=== PATIENT | female | born 2000 | race American Indian/Alaskan Native ===

== ENCOUNTER 2021-01-28 18:38 | Outpatient (CLI) | payer MEDICAID ==
[2021-01-28 19:35] VITALS: BP 130/79
== END 2021-01-28 20:35 | disposition home or self-care (01) ==
LOC: TRG 18:38 → APU 18:41 → TRG 20:35
PROVIDERS: ATTEND Obstetrics & Gynecology
DX: Z34.93 Encounter for supervision of normal pregnancy, unspecified, third trimester (principal); Z3A.39 39 weeks gestation of pregnancy
CPT/HCPCS: 59025; Q0177

== ENCOUNTER 2021-01-29 15:37 | Inpatient (IN) | payer MEDICAID, OTHER ==
[2021-01-29] MEDS ORDERED: ACETAMINOPHEN 325 MG TAB PO PRN (16:36)
[2021-01-29] MEDS ORDERED: ONDANSETRON 4 MG/2 ML INJ IV PRN (16:36)
--- NOTE | 2021-01-29 16:52 | History and Physical Report ---
History of Present Illness Date of examination: 01/29/21 Date of admission: 01/29/2021 Chief complaint: contractions and back pain for the last 3 days History of present illness: EDC Confirmation: 02/07/2021 Past History : 2 Term Births: 1 Premature Births: 0 Living Children: 1 Para: 1 Mult. Births: 0 Prev : 1 Prev. attempt? 0 Aborta: 0 Elect. Ab: 0 Spont. Ab: 0 Ectopics: 0 # 1 Delivery date: 05/03/2019 Weeks Gestation: 37 labor: no Delivery type: Delivery location: [facility] Infant Sex: Female weight: 6-7lbs Comments: failed IOL for pre-e Past Medical History: Reviewed and updated today: Migraines Asthma ( from [facility] ED records review) Past Surgical History: Reviewed and updated today: hernia repair (from [facility] ED records review) Adenoidectomy (from [facility] ED records review) General Comments - FH: MGM - sickle cell trait Social History: single Mothers lives near [facility] Risk Factors: Smoked Tobacco Use: Never smoker Smokeless Tobacco Use: Never Passive Smoke Exposure: no HIV High Risk Behavior: no Alcohol Use: no Drug Use: no Past Medical History Surgery (Non-rn licensed practical): hernia repair (from [facility] ED records review) Adenoidectomy (from [facility] ED records review) Family Hx: MGM - sickle cell trait Social Hx: single Mothers lives near [facility] Infection History Hx of STD: trich HIV Risk Eval: no Hepatitis B Risk Eval: low risk Personal hx. of genital herpes: no Partner hx. of genital herpes: no Varicella/Chicken Pox Status: Immunized Genetic History Congenital Heart Defect: Mom: no Dad: no Kori Disease: Mom: no Dad: no Thalassemia Mom: no Dad: no Neural Tube Defect Mom: no Dad: no Down's Syndrome Mom: no Dad: no Rajesh-Sachs Mom: no Dad: no Sickle Cell Disease/Trait Mom: yes Dad: no Comments: MGM + trait Hemophilia Mom: no Dad: no Muscular Dystrophy Mom: no Dad: no Cystic Fibrosis Mom: no Dad: no Pitcairn Chorea Mom: no Dad: no Mental Retardation Mom: no Dad: no Fragile X Mom: no Dad: no Other Genetic/Chromosomal Disorder Mom: no Dad: no Child w/other defect Mom: no Dad: no Enviromental Exposures Xray Exposure: no Medication, drug, or alcohol use since LMP: no Chemical/Other Exposure: no Exposure to Cat Liter: no Hx of Parvovirus (Fifth Disease): no Occupational Exposure to Children: none Active Medications: vitamins () Current Allergies: MORPHINE (Critical) * ROBITUSSIN (Critical) Past History Past Medical History: other (see HPI) Past Surgical History: other (see HPI) 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 (see HPI) Family/Genetic History: other (see HPI) Social history: other (see HPI) - Obstetrical History Expected Date of Delivery: 02/07/21 Actual Gestation: 38 Week(s) 5 Day(s) : 2 Para: 1 Hx # Term Pregnancies: 1 Number of Pregnancies: 0 Spontaneous Abortions: 0 Induced : 0 Number of Living Children: 1 Medications and Allergies Allergies Allergy/AdvReac Type Severity Reaction Status Date / Time guaifenesin [From Robitussin] Allergy Hives Verified 07/27/14 20:42 pear Allergy Hives Verified 07/27/14 20:42 shellfish derived Allergy Hives Verified 07/27/14 20:42 shrimp Allergy Hives Uncoded 07/27/14 20:42 Home Medications Medication Instructions Recorded Confirmed Last Taken Type Acetaminophen/Codeine [Tylenol #3] 1 tab PO Q6H PRN #20 tab 07/27/14 Unknown Rx Ibuprofen [Motrin] 600 mg PO Q8H PRN #30 tablet 07/27/14 Unknown Rx cephALEXin [Keflex] 500 mg PO Q8HR #21 cap 02/20/15 Unknown Rx Review of Systems All systems: negative Genitourinary: contractions, no vaginal bleeding, no leakage of fluid, no dysuria, no genital sores Musculoskeletal: low back pain - Vital Signs Vital signs: Vital Signs Pulse BP 111 H 120/66 01/29/21 15:53 01/29/21 15:53 Temp Pulse Resp BP Pulse Ox 98.1 F 111 H 18 120/66 97 01/29/21 16:30 01/29/21 16:30 01/29/21 16:30 01/29/21 16:30 01/29/21 16:30 - Physical Exam Breasts: Positive: deferred Cardiovascular: Regular rate Lungs: Positive: Normal air movement Abdomen: Positive: normal appearance, soft. Negative: tenderness, guarding, rigidity Genitourinary (Female): Positive: normal external genitalia, normal perenium Vulva: both: normal Vagina: Positive: normal moisture Uterus: Positive: normal size, normal contour, other (gravid). Negative: tender Anus/Rectum: Positive: normal perianal skin Extremities: Positive: normal - Obstetrical FHR: auscultation normal, category 1 Uterine Contraction Monitor Mode: External Cervical Dilatation: 0 Cervical Effacement Percentage: 0 Uterine Contraction Pattern: Absent Uterine Tone Measurement Phase: Resting Results All other labs normal. Tests: (1) Ct, Ng, Trich vag by [facility] ([id number]) Order Note: Clinical Information: SRC:UR Chlamydia by [facility] Negative Negative *1 Gonococcus by [facility] Negative Negative *2 Trich vag by [facility] Negative Negative *3 Tests: (1) Strep Gp B [facility] ([id number]) Order Note: Clinical Information: SRC:VR ! Strep Gp B [facility] Negative Negative *1 Tests: (1) CBC, Platelet, No Differential ([id number]) Order Note: Clinical Information: SRC:UR WBC 9.7 x10E3/uL 3.4-10.8 *1 RBC [L] 3.65 x10E6/uL 3.77-5.28 *2 Hemoglobin [L] 9.5 g/dL 11.1-15.9 *3 Hematocrit [L] 29.7 % 34.0-46.6 *4 MCV 81 fL 79-97 *5 MCH [L] 26.0 pg 26.6-33.0 *6 MCHC 32.0 g/dL 31.5-35.7 *7 RDW 14.2 % 11.7-15.4 *8 Platelets 295 x10E3/uL 150-450 *9 ! NRBC <No Reported Value> *10 Tests: (2) Ct, Ng, Trich vag by [facility] ([id number]) Chlamydia by [facility] Negative Negative *11 Gonococcus by [facility] Negative Negative *12 Trich vag by [facility] Negative Negative *13 Tests: (4) RPR, Rfx Qn RPR/Confirm TP ([id number]) RPR Non Reactive Non Reactive *15 Tests: (5) HIV Ag/Ab with Reflex ([id number]) HIV Screen 4th Generation wRfx Non Reactive Non Reactive *16 Tests: (6) HCV Antibody reflex to [facility] ([id number]) HCV Ab <0.1 s/co ratio 0.0-0.9 *17 Tests: (7) Interpretation: ([id number]) ! Interpretation: SPRCS *[address] Altman consulted for POC. POC d/w pt. Questions encouraged and addressed. Admit to OBS for therapeutic rest. NPO at this time. Pt verbalizes understanding and agrees to POC. - Patient Problems (1) Maternal care for scar from previous delivery Current Visit: Yes Status: Acute Plan to address problem: start IV and draw admission labs NPO for now continuous monitoring notify provider with any changes in status pt currently scheduled for pre-op visit on Wednesday01/31/[address] Robison and for repeat section on 02/07/21 (2) 38 weeks gestation of Current Visit: Yes Status: Acute
[2021-01-29] MEDS: LACTATED RINGERS 1,000 ML IV SCH ×2 (18:31→22:37)
[2021-01-29 19:03] LABS: Eosinophils # (Auto) 0.1 K/mm3 (0.0-0.4); Eosinophils % (Auto) 1.5 % (0.0-4.3); Hemoglobin 9.2 gm/dl (10.1-14.3); Lymphocytes # (Auto) 1.6 K/mm3 (1.2-5.4); Mean Corpuscular HGB Conc 32 % (30-34); Mean Corpuscular Volume 82 fl (79-97); Monocytes # (Auto) 0.7 K/mm3 (0.0-0.8); Monocytes % (Auto) 11.5 % (0.0-7.3); Platelet Count 261 K/mm3 (140-440); Red Blood Count 3.55 M/mm3 (3.65-5.03); Red Cell Distribution Width 15.9 % (13.2-15.2)
[2021-01-29 19:06] LABS: Basophils % (Auto) 0.4 % (0.0-1.8)
[2021-01-29] MEDS ORDERED: ACETAMINOPHEN 500 MG TAB PO ONE (22:30)
[2021-01-30] MEDS: LACTATED RINGERS 1,000 ML IV SCH ×2 (06:23→12:46)
[2021-01-30] MEDS ORDERED: FAMOTIDINE 20 MG/2 ML INJ IV NR ×2 (07:34→12:20)
[2021-01-30] MEDS ORDERED: METOCLOPRAMIDE 10 MG/2 ML INJ IV NR ×2 (07:34→12:20)
[2021-01-30] MEDS ORDERED: BICITRA ORAL LIQD 30ML PO NR ×2 (07:34→12:20)
[2021-01-30] MEDS ORDERED: LACTATED RINGERS 1,000 ML IV SCH ×2 (07:45→12:30)
--- NOTE | 2021-01-30 07:46 | Progress Note ---
<VALENTINO DOWNING - Last Filed: 01/30/21 07:48> Assessment and Plan A: 20 y.o. @ 38.6 wks, hx of rpt . Cervical exam this AM 3. P: Plan to rpt today. Pre Op orders placed. Continue with NPO. Subjective - Subjective Date of service: 01/30/21 Principal diagnosis: IUP @ 38.6 weeks, rpt Patient reports: other Objective - Vital Signs Vital Signs: Vital Signs - 12hr 01/29/21 01/29/21 01/29/21 19:40 19:45 19:50 Temperature Pulse Rate 93 H 96 H 100 H Respiratory Rate Blood Pressure O2 Sat by Pulse 98 96 96 Oximetry O2 Sat by Pulse Oximetry [ Bilateral Throughout] 01/29/21 01/29/21 01/29/21 19:55 20:00 20:05 Temperature 98.4 F Pulse Rate 98 H 98 H 92 H Respiratory 20 Rate Blood Pressure O2 Sat by Pulse 97 96 97 Oximetry O2 Sat by Pulse 97 Oximetry [ Bilateral Throughout] 01/29/21 01/29/21 01/29/21 20:10 20:15 20:20 Temperature Pulse Rate 88 106 H 95 H Respiratory Rate Blood Pressure O2 Sat by Pulse 97 97 97 Oximetry O2 Sat by Pulse Oximetry [ Bilateral Throughout] 01/29/21 01/29/21 01/29/21 20:25 20:30 20:35 Temperature Pulse Rate 95 H 93 H 90 Respiratory Rate Blood Pressure O2 Sat by Pulse 97 98 96 Oximetry O2 Sat by Pulse Oximetry [ Bilateral Throughout] 01/29/21 01/29/21 01/29/21 20:40 20:45 20:50 Temperature Pulse Rate 104 H 93 H 102 H Respiratory Rate Blood Pressure O2 Sat by Pulse 97 96 96 Oximetry O2 Sat by Pulse Oximetry [ Bilateral Throughout] 01/29/21 01/29/21 01/29/21 20:55 21:00 21:01 Temperature Pulse Rate 95 H 92 H 98 H Respiratory Rate Blood Pressure 119/67 O2 Sat by Pulse 96 98 Oximetry O2 Sat by Pulse Oximetry [ Bilateral Throughout] 01/29/21 01/29/21 01/29/21 21:05 21:10 21:15 Temperature Pulse Rate 99 H 113 H 98 H Respiratory Rate Blood Pressure O2 Sat by Pulse 97 98 99 Oximetry O2 Sat by Pulse Oximetry [ Bilateral Throughout] 01/29/21 01/29/21 01/29/21 21:20 21:25 21:30 Temperature Pulse Rate 97 H 92 H 90 Respiratory Rate Blood Pressure O2 Sat by Pulse 98 98 98 Oximetry O2 Sat by Pulse Oximetry [ Bilateral Throughout] 01/29/21 01/29/21 01/29/21 21:35 21:40 21:45 Temperature Pulse Rate 95 H 79 89 Respiratory Rate Blood Pressure O2 Sat by Pulse 98 97 97 Oximetry O2 Sat by Pulse Oximetry [ Bilateral Throughout] 01/29/21 01/29/21 01/29/21 21:50 21:55 22:00 Temperature Pulse Rate 80 80 93 H Respiratory Rate Blood Pressure O2 Sat by Pulse 98 98 98 Oximetry O2 Sat by Pulse Oximetry [ Bilateral Throughout] 01/29/21 01/29/21 01/29/21 22:05 22:10 22:15 Temperature Pulse Rate 92 H 95 H 85 Respiratory Rate Blood Pressure O2 Sat by Pulse 97 97 97 Oximetry O2 Sat by Pulse Oximetry [ Bilateral Throughout] 01/29/21 01/29/21 01/29/21 22:20 22:25 22:30 Temperature Pulse Rate 98 H 83 86 Respiratory Rate Blood Pressure O2 Sat by Pulse 97 97 97 Oximetry O2 Sat by Pulse Oximetry [ Bilateral Throughout] 01/29/21 01/29/21 01/29/21 22:35 22:40 22:45 Temperature Pulse Rate 89 81 97 H Respiratory Rate Blood Pressure O2 Sat by Pulse 98 96 97 Oximetry O2 Sat by Pulse Oximetry [ Bilateral Throughout] 01/29/21 01/29/21 01/29/21 22:50 22:55 23:00 Temperature Pulse Rate 89 91 H 83 Respiratory Rate Blood Pressure O2 Sat by Pulse 96 97 97 Oximetry O2 Sat by Pulse Oximetry [ Bilateral Throughout] 01/29/21 01/29/21 01/29/21 23:05 23:10 23:15 Temperature Pulse Rate 89 88 91 H Respiratory Rate Blood Pressure O2 Sat by Pulse 95 97 96 Oximetry O2 Sat by Pulse Oximetry [ Bilateral Throughout] 01/29/21 01/29/21 01/29/21 23:20 23:25 23:30 Temperature Pulse Rate 107 H 92 H 94 H Respiratory Rate Blood Pressure O2 Sat by Pulse 96 98 98 Oximetry O2 Sat by Pulse Oximetry [ Bilateral Throughout] 01/29/21 01/29/21 01/29/21 23:35 23:40 23:45 Temperature Pulse Rate 102 H 90 88 Respiratory Rate Blood Pressure O2 Sat by Pulse 97 97 97 Oximetry O2 Sat by Pulse Oximetry [ Bilateral Throughout] 01/29/21 01/29/21 01/30/21 23:50 23:55 00:00 Temperature Pulse Rate 80 94 H 85 Respiratory Rate Blood Pressure O2 Sat by Pulse 96 97 97 Oximetry O2 Sat by Pulse Oximetry [ Bilateral Throughout] 01/30/21 01/30/21 01/30/21 00:05 00:10 00:15 Temperature Pulse Rate 99 H 93 H 98 H Respiratory Rate Blood Pressure O2 Sat by Pulse 96 96 96 Oximetry O2 Sat by Pulse Oximetry [ Bilateral Throughout] 01/30/21 01/30/21 01/30/21 00:20 00:25 00:30 Temperature Pulse Rate 104 H 89 94 H Respiratory Rate Blood Pressure O2 Sat by Pulse 97 98 98 Oximetry O2 Sat by Pulse Oximetry [ Bilateral Throughout] 01/30/21 01/30/21 01/30/21 00:35 00:40 00:45 Temperature Pulse Rate 85 72 83 Respiratory Rate Blood Pressure O2 Sat by Pulse 99 100 98 Oximetry O2 Sat by Pulse Oximetry [ Bilateral Throughout] 01/30/21 01/30/21 01/30/21 00:50 00:55 01:00 Temperature 98.5 F Pulse Rate 76 81 80 Respiratory Rate Blood Pressure O2 Sat by Pulse 97 98 97 Oximetry O2 Sat by Pulse Oximetry [ Bilateral Throughout] 01/30/21 01/30/21 01/30/21 01:05 01:10 01:15 Temperature Pulse Rate 80 80 90 Respiratory Rate Blood Pressure O2 Sat by Pulse 97 96 98 Oximetry O2 Sat by Pulse Oximetry [ Bilateral Throughout] 01/30/21 01/30/21 01/30/21 01:20 01:25 01:30 Temperature Pulse Rate 74 79 83 Respiratory Rate Blood Pressure O2 Sat by Pulse 98 97 98 Oximetry O2 Sat by Pulse Oximetry [ Bilateral Throughout] 01/30/21 01/30/21 01/30/21 01:35 01:40 01:45 Temperature Pulse Rate 83 79 88 Respiratory Rate Blood Pressure O2 Sat by Pulse 98 97 98 Oximetry O2 Sat by Pulse Oximetry [ Bilateral Throughout] 01/30/21 01/30/2101/30/21 01:55 02:00 02:05 Temperature Pulse Rate 75 96 H Respiratory Rate Blood Pressure O2 Sat by Pulse 98 99 98 Oximetry O2 Sat by Pulse Oximetry [ Bilateral Throughout] 01/30/21 01/30/21 01/30/21 02:10 02:12 02:15 Temperature Pulse Rate 75 73 79 Respiratory Rate Blood Pressure 131/73 O2 Sat by Pulse 98 97 Oximetry O2 Sat by Pulse Oximetry [ Bilateral Throughout] 01/30/21 01/30/21 01/30/21 02:20 02:25 02:30 Temperature Pulse Rate 79 87 90 Respiratory Rate Blood Pressure O2 Sat by Pulse 96 96 96 Oximetry O2 Sat by Pulse Oximetry [ Bilateral Throughout] 01/30/21 01/30/21 01/30/21 02:35 02:40 02:45 Temperature Pulse Rate 86 88 86 Respiratory Rate Blood Pressure O2 Sat by Pulse 96 96 96 Oximetry O2 Sat by Pulse Oximetry [ Bilateral Throughout] 01/30/21 01/30/21 01/30/21 02:50 02:55 03:00 Temperature Pulse Rate 93 H 82 85 Respiratory Rate Blood Pressure O2 Sat by Pulse 95 97 99 Oximetry O2 Sat by Pulse Oximetry [ Bilateral Throughout] 01/30/21 01/30/21 01/30/21 03:05 03:10 03:15 Temperature Pulse Rate 79 84 80 Respiratory Rate Blood Pressure O2 Sat by Pulse 98 98 97 Oximetry O2 Sat by Pulse Oximetry [ Bilateral Throughout] 01/30/21 01/30/21 01/30/21 03:17 03:20 03:25 Temperature Pulse Rate 72 84 77 Respiratory Rate Blood Pressure O2 Sat by Pulse 93 98 97 Oximetry O2 Sat by Pulse Oximetry [ Bilateral Throughout] 01/30/21 01/30/21 01/30/21 03:30 03:35 03:40 Temperature Pulse Rate 77 80 80 Respiratory Rate Blood Pressure O2 Sat by Pulse 97 97 96 Oximetry O2 Sat by Pulse Oximetry [ Bilateral Throughout] 01/30/21 01/30/21 01/30/21 03:45 03:50 03:58 Temperature Pulse Rate 82 74 73 Respiratory Rate Blood Pressure O2 Sat by Pulse 97 97 88 Oximetry O2 Sat by Pulse Oximetry [ Bilateral Throughout] 01/30/21 01/30/21 01/30/21 04:03 04:08 04:09 Temperature Pulse Rate 78 79 76 Respiratory Rate Blood Pressure O2 Sat by Pulse 98 98 94 Oximetry O2 Sat by Pulse Oximetry [ Bilateral Throughout] 01/30/21 01/30/21 01/30/21 04:13 04:18 04:23 Temperature Pulse Rate 85 78 78 Respiratory Rate Blood Pressure O2 Sat by Pulse 98 98 98 Oximetry O2 Sat by Pulse Oximetry [ Bilateral Throughout] 01/30/21 01/30/21 01/30/21 04:28 04:33 04:38 Temperature Pulse Rate 80 85 73 Respiratory Rate Blood Pressure O2 Sat by Pulse 97 97 97 Oximetry O2 Sat by Pulse Oximetry [ Bilateral Throughout] 01/30/21 01/30/21 01/30/21 04:43 04:48 04:53 Temperature Pulse Rate 73 74 71 Respiratory Rate Blood Pressure O2 Sat by Pulse 97 97 97 Oximetry O2 Sat by Pulse Oximetry [ Bilateral Throughout] 01/30/21 01/30/21 01/30/21 04:58 05:03 05:08 Temperature Pulse Rate 73 75 75 Respiratory Rate Blood Pressure O2 Sat by Pulse 98 98 98 Oximetry O2 Sat by Pulse Oximetry [ Bilateral Throughout] 01/30/21 01/30/21 01/30/21 05:13 05:18 05:23 Temperature Pulse Rate 70 79 78 Respiratory Rate Blood Pressure O2 Sat by Pulse 98 99 98 Oximetry O2 Sat by Pulse Oximetry [ Bilateral Throughout] 01/30/21 01/30/21 01/30/21 05:28 05:33 05:38 Temperature Pulse Rate 79 73 83 Respiratory Rate Blood Pressure O2 Sat by Pulse 98 98 98 Oximetry O2 Sat by Pulse Oximetry [ Bilateral Throughout] 01/30/21 01/30/21 01/30/21 05:43 05:48 05:53 Temperature Pulse Rate 92 H 89 88 Respiratory Rate Blood Pressure O2 Sat by Pulse 99 98 99 Oximetry O2 Sat by Pulse Oximetry [ Bilateral Throughout] 01/30/21 01/30/21 01/30/21 05:58 06:03 06:08 Temperature Pulse Rate 76 74 76 Respiratory Rate Blood Pressure O2 Sat by Pulse 98 98 98 Oximetry O2 Sat by Pulse Oximetry [ Bilateral Throughout] 01/30/21 01/30/21 01/30/21 06:13 06:25 06:28 Temperature 97.5 F L Pulse Rate 80 69 Respiratory Rate Blood Pressure O2 Sat by Pulse 97 100 Oximetry O2 Sat by Pulse Oximetry [ Bilateral Throughout] 01/30/21 01/30/21 01/30/21 06:30 06:35 06:40 Temperature Pulse Rate 84 89 90 Respiratory Rate Blood Pressure O2 Sat by Pulse 99 99 98 Oximetry O2 Sat by Pulse Oximetry [ Bilateral Throughout] 01/30/21 01/30/21 01/30/21 06:44 06:45 06:50 Temperature Pulse Rate 65 75 77 Respiratory Rate Blood Pressure 116/66 O2 Sat by Pulse 99 98 Oximetry O2 Sat by Pulse Oximetry [ Bilateral Throughout] 01/30/21 01/30/21 01/30/21 06:55 07:00 07:05 Temperature Pulse Rate 68 85 94 H Respiratory Rate Blood Pressure O2 Sat by Pulse 98 99 99 Oximetry O2 Sat by Pulse Oximetry [ Bilateral Throughout] 01/30/21 01/30/21 01/30/21 07:10 07:15 07:20 Temperature Pulse Rate 87 95 H 94 H Respiratory Rate Blood Pressure O2 Sat by Pulse 97 99 99 Oximetry O2 Sat by Pulse Oximetry [ Bilateral Throughout] 01/30/21 01/30/21 01/30/21 07:25 07:30 07:35 Temperature Pulse Rate 102 H 80 75 Respiratory Rate Blood Pressure O2 Sat by Pulse 98 100 100 Oximetry O2 Sat by Pulse Oximetry [ Bilateral Throughout] - Exam Narrative Exam: Discussed with patient the plan of care for the day. Pt still with c/o lower abdominal pain. Cervical exam , soft, posterior. Consulted with Dr. Og. Will do rpt today. Pt and her mother are aware of this plan. Will continue with NPO. proposal review analyst and RN taking care of patient aware. Breasts: deferred Cardiovascular: Regular rate Lungs: Normal air movement Abdomen: Present: normal appearance, soft Vulva: both: normal Uterus: Present: normal FHR: category 1 Uterine Contraction Monitor Mode: External Cervical Dilatation: 1 Cervical Effacement Percentage: 30 station: -3 Uterine Contraction Pattern: Irregular Uterine Tone Measurement Phase: Resting Uterine Contraction Intensity: Mild Extremities: normal - Labs Labs: Abnormal Labs 01/29/21 18:30 RBC 3.55 L Hgb 9.2 L Hct 29.0 L MCH 26 L RDW 15.9 H [place] % (Auto) 11.5 H Laboratory Results - last 24 hr 01/29/21 01/29/21 01/29/21 18:30 18:30 18:30 WBC 6.2 RBC 3.55 L Hgb 9.2 L Hct 29.0 L MCV 82 MCH 26 L MCHC 32 RDW 15.9 H Plt Count 261 Lymph % (Auto) 25.0 [place] % (Auto) 11.5 H Eos % (Auto) 1.5 Baso % (Auto) 0.4 Lymph # (Auto) 1.6 [place] # (Auto) 0.7 Eos # (Auto) 0.1 Baso # (Auto) 0.0 Seg Neutrophils % 61.6 Seg Neutrophils # 3.8 Syphilis IgG Antibody Nonreactive Blood Type O POSITIVE Antibody Screen Negative <MARIAELENA OG - Last Filed: 01/30/21 08:03> Assessment and Plan - Patient Problems (1) Uterine contractions Current Visit: Yes Status: Acute Plan to address problem: Persistent contractions with cervical change. Previous c/s. Will proceed with c/s. Risk associated with delivery were discussed, including but not limited to, bleeding that may require blood transfusion, infection that may be life threatening, injury to adjacent organs specifically bowel or bladder that may require further surgeries, or major vascular injury. She was also informed that when she has had a delivery she may require repeat deliveries for all subsequent pregnancies. Questions were encouraged and answered, consents were reviewed and signed. Patient voiced understanding and desires to proceed with delivery. Objective - Vital Signs Vital Signs: Vital Signs - 12hr 01/29/21 01/29/21 01/29/21 20:00 20:05 20:10 Temperature 98.4 F Pulse Rate 98 H 92 H 88 Respiratory 20 Rate Blood Pressure O2 Sat by Pulse 96 97 97 Oximetry O2 Sat by Pulse 97 Oximetry [ Bilateral Throughout] 01/29/21 01/29/21 01/29/21 20:15 20:20 20:25 Temperature Pulse Rate 106 H 95 H 95 H Respiratory Rate Blood Pressure O2 Sat by Pulse 97 97 97 Oximetry O2 Sat by Pulse Oximetry [ Bilateral Throughout] 01/29/21 01/29/21 01/29/21 20:30 20:35 20:40 Temperature Pulse Rate 93 H 90 104 H Respiratory Rate Blood Pressure O2 Sat by Pulse 98 96 97 Oximetry O2 Sat by Pulse Oximetry [ Bilateral Throughout] 01/29/21 01/29/21 01/29/21 20:45 20:50 20:55 Temperature Pulse Rate 93 H 102 H 95 H Respiratory Rate Blood Pressure O2 Sat by Pulse 96 96 96 Oximetry O2 Sat by Pulse Oximetry [ Bilateral Throughout] 01/29/21 01/29/21 01/29/21 21:00 21:01 21:05 Temperature Pulse Rate 92 H 98 H 99 H Respiratory Rate Blood Pressure 119/67 O2 Sat by Pulse 98 97 Oximetry O2 Sat by Pulse Oximetry [ Bilateral Throughout] 01/29/21 01/29/21 01/29/21 21:10 21:15 21:20 Temperature Pulse Rate 113 H 98 H 97 H Respiratory Rate Blood Pressure O2 Sat by Pulse 98 99 98 Oximetry O2 Sat by Pulse Oximetry [ Bilateral Throughout] 01/29/21 01/29/21 01/29/21 21:25 21:30 21:35 Temperature Pulse Rate 92 H 90 95 H Respiratory Rate Blood Pressure O2 Sat by Pulse 98 98 98 Oximetry O2 Sat by Pulse Oximetry [ Bilateral Throughout] 01/29/21 01/29/21 01/29/21 21:40 21:45 21:50 Temperature Pulse Rate 79 89 80 Respiratory Rate Blood Pressure O2 Sat by Pulse 97 97 98 Oximetry O2 Sat by Pulse Oximetry [ Bilateral Throughout] 01/29/21 01/29/21 01/29/21 21:55 22:00 22:05 Temperature Pulse Rate 80 93 H 92 H Respiratory Rate Blood Pressure O2 Sat by Pulse 98 98 97 Oximetry O2 Sat by Pulse Oximetry [ Bilateral Throughout] 01/29/21 01/29/21 01/29/21 22:10 22:15 22:20 Temperature Pulse Rate 95 H 85 98 H Respiratory Rate Blood Pressure O2 Sat by Pulse 97 97 97 Oximetry O2 Sat by Pulse Oximetry [ Bilateral Throughout] 01/29/21 01/29/21 01/29/21 22:25 22:30 22:35 Temperature Pulse Rate 83 86 89 Respiratory Rate Blood Pressure O2 Sat by Pulse 97 97 98 Oximetry O2 Sat by Pulse Oximetry [ Bilateral Throughout] 01/29/21 01/29/21 01/29/21 22:40 22:45 22:50 Temperature Pulse Rate 81 97 H 89 Respiratory Rate Blood Pressure O2 Sat by Pulse 96 97 96 Oximetry O2 Sat by Pulse Oximetry [ Bilateral Throughout] 01/29/21 01/29/21 01/29/21 22:55 23:00 23:05 Temperature Pulse Rate 91 H 83 89 Respiratory Rate Blood Pressure O2 Sat by Pulse 97 97 95 Oximetry O2 Sat by Pulse Oximetry [ Bilateral Throughout] 01/29/21 01/29/21 01/29/21 23:10 23:15 23:20 Temperature Pulse Rate 88 91 H 107 H Respiratory Rate Blood Pressure O2 Sat by Pulse 97 96 96 Oximetry O2 Sat by Pulse Oximetry [ Bilateral Throughout] 01/29/21 01/29/21 01/29/21 23:25 23:30 23:35 Temperature Pulse Rate 92 H 94 H 102 H Respiratory Rate Blood Pressure O2 Sat by Pulse 98 98 97 Oximetry O2 Sat by Pulse Oximetry [ Bilateral Throughout] 01/29/21 01/29/21 01/29/21 23:40 23:45 23:50 Temperature Pulse Rate 90 88 80 Respiratory Rate Blood Pressure O2 Sat by Pulse 97 97 96 Oximetry O2 Sat by Pulse Oximetry [ Bilateral Throughout] 01/29/21 01/30/21 01/30/21 23:55 00:00 00:05 Temperature Pulse Rate 94 H 85 99 H Respiratory Rate Blood Pressure O2 Sat by Pulse 97 97 96 Oximetry O2 Sat by Pulse Oximetry [ Bilateral Throughout] 01/30/21 01/30/21 01/30/21 00:10 00:15 00:20 Temperature Pulse Rate 93 H 98 H 104 H Respiratory Rate Blood Pressure O2 Sat by Pulse 96 96 97 Oximetry O2 Sat by Pulse Oximetry [ Bilateral Throughout] 01/30/21 01/30/21 01/30/21 00:25 00:30 00:35 Temperature Pulse Rate 89 94 H 85 Respiratory Rate Blood Pressure O2 Sat by Pulse 98 98 99 Oximetry O2 Sat by Pulse Oximetry [ Bilateral Throughout] 01/30/21 01/30/21 01/30/21 00:40 00:45 00:50 Temperature Pulse Rate 72 83 76 Respiratory Rate Blood Pressure O2 Sat by Pulse 100 98 97 Oximetry O2 Sat by Pulse Oximetry [ Bilateral Throughout] 01/30/21 01/30/21 01/30/21 00:55 01:00 01:05 Temperature 98.5 F Pulse Rate 81 80 80 Respiratory Rate Blood Pressure O2 Sat by Pulse 98 97 97 Oximetry O2 Sat by Pulse Oximetry [ Bilateral Throughout] 01/30/21 01/30/21 01/30/21 01:10 01:15 01:20 Temperature Pulse Rate 80 90 74 Respiratory Rate Blood Pressure O2 Sat by Pulse 96 98 98 Oximetry O2 Sat by Pulse Oximetry [ Bilateral Throughout] 01/30/21 01/30/21 01/30/21 01:25 01:30 01:35 Temperature Pulse Rate 79 83 83 Respiratory Rate Blood Pressure O2 Sat by Pulse 97 98 98 Oximetry O2 Sat by Pulse Oximetry [ Bilateral Throughout] 01/30/21 01/30/21 01/30/21 01:40 01:45 01:55 Temperature Pulse Rate 79 88 Respiratory Rate Blood Pressure O2 Sat by Pulse 97 98 98 Oximetry O2 Sat by Pulse Oximetry [ Bilateral Throughout] 01/30/21 01/30/21 01/30/21 02:00 02:05 02:10 Temperature Pulse Rate 75 96 H 75 Respiratory Rate Blood Pressure O2 Sat by Pulse 99 98 98 Oximetry O2 Sat by Pulse Oximetry [ Bilateral Throughout] 01/30/21 01/30/21 01/30/21 02:12 02:15 02:20 Temperature Pulse Rate 73 79 79 Respiratory Rate Blood Pressure 131/73 O2 Sat by Pulse 97 96 Oximetry O2 Sat by Pulse Oximetry [ Bilateral Throughout] 01/30/21 01/30/21 01/30/21 02:25 02:30 02:35 Temperature Pulse Rate 87 90 86 Respiratory Rate Blood Pressure O2 Sat by Pulse 96 96 96 Oximetry O2 Sat by Pulse Oximetry [ Bilateral Throughout] 01/30/21 01/30/21 01/30/21 02:40 02:45 02:50 Temperature Pulse Rate 88 86 93 H Respiratory Rate Blood Pressure O2 Sat by Pulse 96 96 95 Oximetry O2 Sat by Pulse Oximetry [ Bilateral Throughout] 01/30/21 01/30/21 01/30/21 02:55 03:00 03:05 Temperature Pulse Rate 82 85 79 Respiratory Rate Blood Pressure O2 Sat by Pulse 97 99 98 Oximetry O2 Sat by Pulse Oximetry [ Bilateral Throughout] 01/30/21 01/30/21 01/30/21 03:10 03:15 03:17 Temperature Pulse Rate 84 80 72 Respiratory Rate Blood Pressure O2 Sat by Pulse 98 97 93 Oximetry O2 Sat by Pulse Oximetry [ Bilateral Throughout] 01/30/21 01/30/21 01/30/21 03:20 03:25 03:30 Temperature Pulse Rate 84 77 77 Respiratory Rate Blood Pressure O2 Sat by Pulse 98 97 97 Oximetry O2 Sat by Pulse Oximetry [ Bilateral Throughout] 01/30/21 01/30/21 01/30/21 03:35 03:40 03:45 Temperature Pulse Rate 80 80 82 Respiratory Rate Blood Pressure O2 Sat by Pulse 97 96 97 Oximetry O2 Sat by Pulse Oximetry [ Bilateral Throughout] 01/30/21 01/30/21 01/30/21 03:50 03:58 04:03 Temperature Pulse Rate 74 73 78 Respiratory Rate Blood Pressure O2 Sat by Pulse 97 88 98 Oximetry O2 Sat by Pulse Oximetry [ Bilateral Throughout] 01/30/21 01/30/21 01/30/21 04:08 04:09 04:13 Temperature Pulse Rate 79 76 85 Respiratory Rate Blood Pressure O2 Sat by Pulse 98 94 98 Oximetry O2 Sat by Pulse Oximetry [ Bilateral Throughout] 01/30/21 01/30/21 01/30/21 04:18 04:23 04:28 Temperature Pulse Rate 78 78 80 Respiratory Rate Blood Pressure O2 Sat by Pulse 98 98 97 Oximetry O2 Sat by Pulse Oximetry [ Bilateral Throughout] 01/30/21 01/30/21 01/30/21 04:33 04:38 04:43 Temperature Pulse Rate 85 73 73 Respiratory Rate Blood Pressure O2 Sat by Pulse 97 97 97 Oximetry O2 Sat by Pulse Oximetry [ Bilateral Throughout] 01/30/21 01/30/21 01/30/21 04:48 04:53 04:58 Temperature Pulse Rate 74 71 73 Respiratory Rate Blood Pressure O2 Sat by Pulse 97 97 98 Oximetry O2 Sat by Pulse Oximetry [ Bilateral Throughout] 01/30/21 01/30/21 01/30/21 05:03 05:08 05:13 Temperature Pulse Rate 75 75 70 Respiratory Rate Blood Pressure O2 Sat by Pulse 98 98 98 Oximetry O2 Sat by Pulse Oximetry [ Bilateral Throughout] 01/30/21 01/30/21 01/30/21 05:18 05:23 05:28 Temperature Pulse Rate 79 78 79 Respiratory Rate Blood Pressure O2 Sat by Pulse 99 98 98 Oximetry O2 Sat by Pulse Oximetry [ Bilateral Throughout] 01/30/21 01/30/21 01/30/21 05:33 05:38 05:43 Temperature Pulse Rate 73 83 92 H Respiratory Rate Blood Pressure O2 Sat by Pulse 98 98 99 Oximetry O2 Sat by Pulse Oximetry [ Bilateral Throughout] 01/30/21 01/30/21 01/30/21 05:48 05:53 05:58 Temperature Pulse Rate 89 88 76 Respiratory Rate Blood Pressure O2 Sat by Pulse 98 99 98 Oximetry O2 Sat by Pulse Oximetry [ Bilateral Throughout] 01/30/21 01/30/21 01/30/21 06:03 06:08 06:13 Temperature Pulse Rate 74 76 80 Respiratory Rate Blood Pressure O2 Sat by Pulse 98 98 97 Oximetry O2 Sat by Pulse Oximetry [ Bilateral Throughout] 01/30/21 01/30/21 01/30/21 06:25 06:28 06:30 Temperature 97.5 F L Pulse Rate 69 84 Respiratory Rate Blood Pressure O2 Sat by Pulse 100 99 Oximetry O2 Sat by Pulse Oximetry [ Bilateral Throughout] 01/30/21 01/30/21 01/30/21 06:35 06:40 06:44 Temperature Pulse Rate 89 90 65 Respiratory Rate Blood Pressure 116/66 O2 Sat by Pulse 99 98 Oximetry O2 Sat by Pulse Oximetry [ Bilateral Throughout] 01/30/21 01/30/21 01/30/21 06:45 06:50 06:55 Temperature Pulse Rate 75 77 68 Respiratory Rate Blood Pressure O2 Sat by Pulse 99 98 98 Oximetry O2 Sat by Pulse Oximetry [ Bilateral Throughout] 01/30/21 01/30/21 01/30/21 07:00 07:05 07:10 Temperature Pulse Rate 85 94 H 87 Respiratory Rate Blood Pressure O2 Sat by Pulse 99 99 97 Oximetry O2 Sat by Pulse Oximetry [ Bilateral Throughout] 01/30/21 01/30/21 01/30/21 07:15 07:20 07:25 Temperature Pulse Rate 95 H 94 H 102 H Respiratory Rate Blood Pressure O2 Sat by Pulse 99 99 98 Oximetry O2 Sat by Pulse Oximetry [ Bilateral Throughout] 01/30/21 01/30/21 01/30/21 07:30 07:35 07:38 Temperature 98.8 F Pulse Rate 80 75 90 Respiratory 22 Rate Blood Pressure 122/70 O2 Sat by Pulse 100 100 100 Oximetry O2 Sat by Pulse Oximetry [ Bilateral Throughout] 01/30/21 01/30/21 01/30/21 07:40 07:45 07:50 Temperature Pulse Rate 76 87 73 Respiratory Rate Blood Pressure O2 Sat by Pulse 100 100 99 Oximetry O2 Sat by Pulse Oximetry [ Bilateral Throughout] - Labs Labs: Abnormal Labs 01/29/21 18:30 RBC 3.55 L Hgb 9.2 L Hct 29.0 L MCH 26 L RDW 15.9 H [place] % (Auto) 11.5 H Laboratory Results - last 24 hr 01/29/21 01/29/21 01/29/21 18:30 18:30 18:30 WBC 6.2 RBC 3.55 L Hgb 9.2 L Hct 29.0 L MCV 82 MCH 26 L MCHC 32 RDW 15.9 H Plt Count 261 Lymph % (Auto) 25.0 [place] % (Auto) 11.5 H Eos % (Auto) 1.5 Baso % (Auto) 0.4 Lymph # (Auto) 1.6 [place] # (Auto) 0.7 Eos # (Auto) 0.1 Baso # (Auto) 0.0 Seg Neutrophils % 61.6 Seg Neutrophils # 3.8 Syphilis IgG Antibody Nonreactive Blood Type O POSITIVE Antibody Screen Negative
[2021-01-30] MEDS ORDERED: OXYTOCIN DRIP 30 UNITS/500 ML BAG IV SCH ×3 (08:00→19:59)
[2021-01-30] MEDS ORDERED: ceFAZolin/Water 2 GM/20 ML 2 GM/20 ML SYRINGE IV NR ×2 (08:00→13:00)
[2021-01-30] MEDS ORDERED: PROMETHAZINE 25 MG RECT SUPP PR PRN (12:47)
[2021-01-30] MEDS ORDERED: diphenhydrAMINE 50 MG/ML VIAL IV PRN (12:47)
[2021-01-30] MEDS ORDERED: PROMETHAZINE 25 MG TAB PO PRN (12:47)
[2021-01-30] MEDS ORDERED: NalbUPHINE 10 MG/1 ML INJ IV PRN (12:47)
[2021-01-30] MEDS ORDERED: ONDANSETRON 4 MG/2 ML INJ IV PRN (12:47)
[2021-01-30] MEDS ORDERED: NALOXONE 0.4 MG/1 ML INJ IV PRN ×2 (12:47→19:59)
[2021-01-30] MEDS ORDERED: HYDROmorphone 1 MG/1 ML INJ IV PRN (12:51)
[2021-01-30] MEDS ORDERED: KETOROLAC 30 MG/1 ML INJ ONE ×2 (12:56→16:51)
[2021-01-30] MEDS ORDERED: ONDANSETRON 4 MG/2 ML INJ ONE ×2 (12:56→16:51)
[2021-01-30] MEDS ORDERED: BUPIVACAINE/PF (0.5%) 5 MG/1 ML 30 ML VIAL INFILTRATI ONE ×2 (12:56→16:51)
[2021-01-30] MEDS ORDERED: dexAMETHasone 20 MG/5 ML VIAL ONE (12:56)
--- NOTE | 2021-01-30 14:32 | Anesthesia Day of Surgery ---
Anesthesia Day of Surgery - Day of Surgery Patient Examined: Yes Patient H&P Reviewed: Yes Patient is NPO: Yes Beta Blockers: No Cardiac Clearance: No Pulmonary Clearance: No Adis's Test: N/A
--- NOTE | 2021-01-30 14:33 | Anesthesia Consultation ---
Anesthesia Consult and Med Hx Date of service: 01/30/21 - Airway Anesthetic Teeth Evaluation: Good ROM Head & Neck: Adequate Mental/Hyoid Distance: Adequate Mallampati Class: Class II Intubation Access Assessment: Probably Good - Pulmonary Exam CTA: Yes - Cardiac Exam Cardiac Exam: RRR - Pre-Operative Health Status ASA Pre-Surgery Classification: ASA2 Proposed Anesthetic Plan: Spinal Nerve Block: TAP - Pulmonary Hx Smoking: No Hx Asthma: Yes (last attack 2019) Hx Sleep Apnea: No - Cardiovascular System Hx Hypertension: Yes (2020 and current) Hx Heart Attack/AMI: No Hx Angina: No - Central Nervous System Hx Psychiatric Problems: Yes (post depression, anxiety) - Endocrine Hx Renal Disease: Yes (kidney parachemia) Hx Liver Disease: No Hx Insulin Dependent Diabetes: No Hx Non-Insulin Dependent Diabetes: No - Other Systems Hx Alcohol Use: No
[2021-01-30] MEDS ORDERED: ceFAZolin/STERILE WATER 2 GM/20 ML SYRINGE IV ONE (16:00)
[2021-01-30] MEDS ORDERED: PHENYLEPHRINE/NS 1,000 MCG/10 ML SYRINGE (OR USE) IV ONE (16:51)
--- NOTE | 2021-01-30 17:04 | Operative Report ---
Operative Report Operative Report: Date of operation: 01/30/2021 Pre-operative diagnosis: 1. Intrauterine at 38 weeks gestational age 2. Persistent uterine contractions with cervical change 3. Teenage 4. BMI 35.7 kg/m2 5. Previous delivery Post-operative diagnosis: 1. Intrauterine at 38 weeks gestational age 2. Persistent uterine contractions with cervical change 3. Teenage 4. BMI 35.7 kg/m2 5. Previous delivery Procedure name(s): Repeat low transverse uterine incision Surgeon: Beverly Og MD [employer]: Denisha Skinner CNM Anesthesia: Spinal E(Q)BL: 484 mL Urine output: 100 mL of clear urine out at the end of the procedure Fluids: 1500 mL Findings: Liveborn male weight 6 Lbs. 5 oz. Apgars of 9 and 9 at one and 5 minutes. Grossly normal uterus, tubes and ovaries. Indications: This is a 20-year-old female 2 para 1 who presented with persistent painful uterine contractions. She is observed overnight. She was given IV fluid sedation however contractions and pain persisted with cervical change patient is a previous therefore decision was made to proceed with delivery due to persistent uterine contractions with cervical change Procedure: Patient was taking to the operating room. Spinal anesthesia was placed. Patient was then prepped and draped in the usual sterile fashion Timeout was performed. Once an appropriate level of anesthesia was noted, a Pfannenstiel incision was made and extended the fascia which was incised and extended lateral direction. The overlying fascia was sharply dissected away from the underlying rectus muscles in the superior inferior direction. The midline was entered bluntly. Bladder blade was placed. Vesicouterine fold was incised with blunt dissection bladder flap was created. A transverse incision was made in the lower uterine segment and extended superolateral direction with finger fractionation. Clear fluid was noted. was delivered from the cephalic position, with spontaneous cry and excellent tone. Mouth and nose bulb suctioned. Cord was doubly clamped and cut was given to the resuscitation team present. Placenta was delivered. The uterus was exteriorized and cleaned of any further placental tissue and products of co nception. Uterine incision was approximated using 0 Vicryl in a running interlocking stitch followed by further suture of 0 Vicryl in imbricating fashion. When hemostasis was noted the uterus was allowed back in the pelvic cavity. Pelvis was irrigated with warm normal saline. Once hemostasis was noted the rectus muscles were approximated using 0 Vicryl interrupted simple stitches 3. Once hemostasis was noted the fascia was approximated using 0 Vicryl simple running stitch. The incision was irrigated with warm saline, once hemostasis as noted, the subcuticular adipose tissue was reapproximated using 3- 0 Vicryl in a simple running fashion. Skin was approximated using 4-0 Vicryl on a Paul needle in a subcuticular manner. Counts were correct x3. Patient tolerated the procedure well, she was taken to recovery room in stable condition.
--- NOTE | 2021-01-30 17:17 | Post Anesthesia Evaluation ---
- Post Anesthesia Evaluation Patient Participated: Yes Airway Patent: Yes Stable Respiratory Function: Yes Nausea/Vomiting: No Temp > 96.8F: Yes Pain Manageable: Yes Adequeate Hydration: Yes Anesthesia Complications: No Block Receding Appropriately: Yes Patient on Ventilator: No
--- NOTE | 2021-01-30 17:17 | Progress Note ---
Spinal Anesthesia Block - Spinal Anesthesia Block Start Time: 15:49 Stop Time: 15:56 Performed by:: Radha lynne Procedure: Spinal anesthesia block is being performed for [repeat ]. H&P, labs have been reviewed. Patient's questions and concerns have been answered. Informed consent has been performed. Timeout has was performed. Patient in sitting position on side of bed. Sterile prep and drape was performed. 3 mL 1% lidocaine skin wheal at L [3]-L [4]. Needle introducer advanced. 25-gauge spinal needle advanced, [+] CSF [-] blood. [1.2 ml .5 bupivicain] Spinal dose was given. All needles removed. Patient tolerated procedure well.
[2021-01-30] MEDS ORDERED: D5W/LACTATED RINGERS 1,000 ML IV SCH (19:59)
[2021-01-30] MEDS ORDERED: SENNOSIDES 8.6 MG TAB PO PRN (19:59)
[2021-01-30] MEDS ORDERED: MORPHINE 2 MG/1 ML INJ IV PRN ×2 (19:59→20:47)
[2021-01-30] MEDS ORDERED: MAGNESIUM HYDROXIDE (MOM) ORAL LIQD UDC PO PRN (19:59)
[2021-01-30] MEDS ORDERED: SIMETHICONE 80 MG CHEW TAB PO PRN (19:59)
[2021-01-30] MEDS ORDERED: WITCH HAZEL/ GLYCERIN PAD TP PRN (19:59)
[2021-01-30] MEDS ORDERED: LANOLIN/ZINC/DIMETHICONE (LANSINOH) 7 GM TP PRN (19:59)
[2021-01-30] MEDS ORDERED: MORPHINE 4 MG/1 ML INJ IV PRN (19:59)
[2021-01-30] MEDS: ceFAZolin/NS 1 GM/50 ML 1 GM/50 ML BAG IV SCH (21:23)
[2021-01-30] MEDS: ACETAMINOPHEN 325 MG TAB PO SCH (21:24)
[2021-01-30] MEDS: KETOROLAC 30 MG/1 ML INJ IV SCH (21:39)
[2021-01-31] MEDS ORDERED: KETOROLAC 30 MG/1 ML INJ IV SCH
[2021-01-31] MEDS: oxyCODONE /ACETAMINOPHEN 5-325MG TAB PO PRN ×2 (00:02→17:26)
[2021-01-31] MEDS ORDERED: HYDROmorphone 1 MG/1 ML INJ IV PRN (01:44)
[2021-01-31] MEDS ORDERED: diphenhydrAMINE 50 MG/ML VIAL IV PRN (01:46)
[2021-01-31] MEDS: HYDROmorphone 1 MG/1 ML INJ IV PRN ×2 (02:08→09:21)
[2021-01-31] MEDS: ACETAMINOPHEN 325 MG TAB PO SCH ×3 (03:30→14:00)
[2021-01-31] MEDS: KETOROLAC 30 MG/1 ML INJ IV SCH ×2 (05:09→13:00)
[2021-01-31] MEDS: ceFAZolin/NS 1 GM/50 ML 1 GM/50 ML BAG IV SCH (05:26)
[2021-01-31 06:11] LABS: Hematocrit 30.8 % (30.3-42.9); Hemoglobin 9.5 gm/dl (10.1-14.3)
[2021-01-31] MEDS ORDERED: TETANUS,DIPH,PERTUSS(ACELL) VACCINE 0.5 ML SYRINGE IM ONE (16:53)
--- NOTE | 2021-01-31 17:32 | Progress Note ---
Assessment and Plan A: 20 y.o. s/p rpt @ term. POD #1. P: Continue with care. Encouraged ambulation. Advance diet as tolerated. Subjective - Subjective Date of service: 01/31/21 Principal diagnosis: rpt , POD #1 Patient reports: appetite normal, voiding normally, pain well controlled [place]: doing well Objective - Vital Signs Latest vital signs: Vital Signs Temp Pulse Resp BP BP Pulse Ox Pulse Ox 01/31/21 17:26 16 01/31/21 12:56 100 01/31/21 09:21 16 01/31/21 07:52 97.8 F 84 18 127/81 99 01/31/21 04:07 98.5 F 64 16 144/81 99 01/30/21 23:31 98.8 F 73 16 137/88 99 01/30/21 22:10 134/84 01/30/21 19:48 97.4 F L 57 L 16 149/100 100 01/30/21 19:20 100 01/30/21 18:09 65 14 125/69 99 01/30/21 17:50 97.6 F 65 14 121/75 97 01/30/21 17:35 97.6 F 64 16 131/73 98 Intake and Output 01/31/21 01/31/21 01/31/21 06:59 14:59 22:59 Output Total 1100 Balance -1100 Output: Urine 1100 Uretheral (Banda) 1100 - Exam Narrative Exam: Pt doing well. Still having some soreness from the . Encouraged patient to get out of bed and walk. Breasts: Present: deferred Cardiovascular: Present: Regular rate Lungs: Present: Normal air movement Abdomen: Present: normal appearance, soft Vulva: both: normal Uterus: Present: normal, firm Extremities: Present: normal Incision: Present: normal, dry, intact, dressed - Labs Labs: Abnormal lab results 01/31/21 Range/Units 05:36 Hgb 9.5 L (10.1-14.3) gm/dl
[2021-02-01] MEDS: oxyCODONE /ACETAMINOPHEN 5-325MG TAB PO PRN ×4 (00:14→22:51)
--- NOTE | 2021-02-01 06:23 | Progress Note ---
Assessment and Plan A: 20 y.o. rpt , POD #2. P: Continue with care. Encouraged continued ambulation. Anticipate discharge home on 02/02. Subjective - Subjective Date of service: 02/01/21 (Pt is not ready to go home. ) Principal diagnosis: rpt , POD #2 Patient reports: appetite normal, voiding normally, pain well controlled, flatus, ambulating normally [place]: doing well Objective - Vital Signs Latest vital signs: Vital Signs Temp Pulse Resp BP Pulse Ox Pulse Ox 02/01/21 01:10 98.4 F 80 20 124/79 94 02/01/21 00:14 12 01/31/21 20:10 98 01/31/21 17:26 16 01/31/21 16:52 98.1 F 68 18 133/87 100 01/31/21 12:56 100 01/31/21 12:25 98.0 F 84 18 119/73 97 01/31/21 09:21 16 01/31/21 07:52 97.8 F 84 18 127/81 99 Intake and Output 01/31/21 01/31/21 02/01/21 14:59 22:59 06:59 Intake Total 240 Output Total 700 Balance -460 Intake: Oral 240 Output: Urine 700 Void 700 Other: Total, Intake Amount 240 Total, Output Amount 700 # Voids Indwelling Catheter 1 Void 1 - Exam Narrative Exam: Pt states that she is not ready to go home. We discussed that she can go home on 02/02. We discussed incision care and how to care for herself during the period. Breasts: Present: deferred Cardiovascular: Present: Regular rate Lungs: Present: Normal air movement Abdomen: Present: normal appearance, soft Vulva: both: normal Uterus: Present: normal, firm Extremities: Present: normal Incision: Present: normal, dry, intact, other (Incision open to air. No s/sx of infection and no drainage noted. )
[2021-02-01] MEDS: IBUPROFEN 800 MG TAB PO PRN ×2 (10:23→20:00)
[2021-02-02] MEDS ORDERED: ACETAMINOPHEN 500 MG TAB PO SCH (09:00)
--- NOTE | 2021-02-02 10:47 | Discharge Summary ---
Providers - Providers Date of Admission: 01/29/21 17:03 Date of discharge: 02/02/21 Attending physician: AZ BRYSON 01/30/21 19:59 Consult to Operations Tech [CONS] Routine Reason For Exam: Primary care physician: AZ BRYSON Hospitalization Reason for admission: active labor, other (With a history of previous section) Delivery: Procedure: section Procedure details: See dictated operative note Incision: normal, dry, intact Other procedures: none complications: none Discharge diagnosis: IUP at term delivered [place] baby: male Hospital course: Patient was admitted in active labor and underwent a repeat section. Patient underwent the procedure without complications. Her post operative course was benign she was afebrile throughout. Patient postoperative day 1 hematocrit was in an acceptable range. Patient had no orthostatic symptoms. Patient was tolerating regular diet and voiding without difficulty at time of discharge. Patient incision was healing well without evidence of infection. Patient plans to bottle and breast-feed and is unsure about her control plans. Condition at discharge: Good Disposition: 01 HOME / SELF CARE / HOMELESS - Discharge Diagnoses (1) Maternal care for scar from previous delivery Status: Acute (2) 38 weeks gestation of Status: Acute (3) Uterine contractions Status: Acute Plan - Discharge Medications Prescriptions: Docusate Sodium [Colace] 100 mg PO BID PRN #30 capsule PRN Reason: Constipation Lidocain2.5%/Prilocai2.5% [Emla] 5 gm TP ONCE #1 tube Ferrous Sulfate [Feosol 325 MG tab] 325 mg PO BID #90 tablet Ibuprofen [Motrin 800 MG tab] 800 mg PO TID PRN #30 tablet PRN Reason: Pain oxyCODONE /ACETAMINOPHEN [Percocet 5/325 mg] 1 - 2 tab PO Q6HR PRN #14 tablet PRN Reason: Pain - Provider Discharge Summary Activity: routine, no sex for 6 weeks, no strenuous exercise Diet: routine Instructions: routine Additional instructions: [] Smoking cessation referral if applicable(refer to patient education folder for contact #) [] Refer to [facility] Booklet Call your doctor immediately for: * Fever > 100.5 * Heavy vaginal bleeding ( >1 pad per hour) * Severe persistent headache * Shortness of breath * Reddened, hot, painful area to leg or breast * Drainage or odor from incision. * Keep incision clean and dry at all times and follow doctor's instructions regarding bathing/showering Patient follow-up in office in 1 week she is also to call and schedule circumcision for her son. - Follow up plan Follow up: AZ BRYSON MD [Primary Care Provider] - 7 Days
[2021-02-02 15:23] VITALS: BP 123/80
== END 2021-02-02 13:30 | disposition home or self-care (01) | DRG 765 ==
LOC: TRG 15:37 → LD 15:37 → APU 15:38 → TRG 17:02 → LD 17:03 → OBSVTOIN 17:03 → OB 01-30 18:27
PROVIDERS: ADMIT Obstetrics & Gynecology; ATTEND Obstetrics & Gynecology
PROC: 10D00Z1 Extraction of Products of Conception, Low, Open Approach (ICD-10-PCS; principal; 2021-01-30)
PROC: 3E0234Z Introduction of Serum, Toxoid and Vaccine into Muscle, Percutaneous Approach (ICD-10-PCS; 2021-01-31)
DX: O34.211 Maternal care for low transverse scar from previous cesarean delivery (principal); O10.92 Unspecified pre-existing hypertension complicating childbirth; N85.8 Other specified noninflammatory disorders of uterus; Z3A.38 38 weeks gestation of pregnancy; Z37.0 Single live birth; Z91.013 Allergy to seafood; Z88.8 Allergy status to other drugs, medicaments and biological substances; Z91.018 Allergy to other foods; Z20.822 Contact with and (suspected) exposure to COVID-19; Z23 Encounter for immunization; J45.909 Unspecified asthma, uncomplicated
CPT/HCPCS: 36415; 59025; 85014; 85018; 85025; 86592; 86850; 86900; 86901; 99211; G0378; G0463; J0690; J1100; J1170; J1200; J1885; J2370; J2405; J2765; J3490; J7120; J7121; Q0177; U0003